=== PATIENT | female | born 1990 | race Caucasian/White ===

== ENCOUNTER 2017-09-01 05:55 | Day surgery (SDC) | payer MEDICAID ==
[~2017-09-01 05:55] MED LIST: Buffered Lidocaine 0.9% SYRIN* 5 ML/SYR SYRINGE INTRADERM ONE
[2017-09-01 06:55] LABS: Hematocrit 36 % (35-47); Hemoglobin 12.4 g/dl (12.0-16.0); Mean Corpuscular HGB Conc 35 g/dl (31-36); Mean Corpuscular Hemoglobin 31 pg (27-31); Mean Corpuscular Volume 89 fL (80-97); Platelet Count 197 10^3/ul (150-450); Red Blood Count 3.99 10^6/ul (4.0-5.4); Red Cell Distribution Width 13 % (10.5-15); White Blood Count 4.7 10^3/ul (3.5-10.8)
[2017-09-01 06:58] LABS: ABS Basophils 0 10^3/ul (0-0.2); ABS Eosinophils 0.1 10^3/ul (0-0.6); ABS Lymphocytes 1.1 10^3/ul (1.0-4.8); ABS Monocytes 0.6 10^3/ul (0-0.8); ABS Neutrophils 2.9 10^3/ul (1.5-7.7); ABS Nucleated RBC 0 10^3/ul; Lymphocyte % 22.4 % (25-47); Nucleated Red Blood Cells % 0.1
[2017-09-01] MEDS ORDERED: fentaNYL* 50 MCG/ML 2 ML VIAL (100 MCG VIAL) ONE ×2 (07:11→09:25)
[2017-09-01] MEDS ORDERED: Midazolam* 1 MG/ML 2 ML VIAL (2 MG) ONE (07:11)
[2017-09-01] MEDS ORDERED: Bupivacaine 0.25% SDV* 30 ML ONE (07:30)
[2017-09-01] MEDS ORDERED: Dexamethasone IV* 4 MG/ML 1 ML (4 MG) ONE (08:10)
[2017-09-01] MEDS ORDERED: Mivacurium Chloride* 20 MG/10 ML VIAL IV ONE (08:10)
[2017-09-01] MEDS ORDERED: Propofol* 10 MG/ML 20 ML BTL IV PUSH ONE (08:10)
[2017-09-01] MEDS ORDERED: Ketorolac INJ* 30 MG/ML 1 ML VIAL ONE (08:10)
[2017-09-01] MEDS ORDERED: Famotidine IV* 10 MG/ML 2 ML (20 mg) ONE (08:10)
[2017-09-01] MEDS ORDERED: ceFOXitin 2 GM IVPREMIX* 2 GM/50 ML BAG IVPB ONE (08:30)
[2017-09-01] MEDS ORDERED: DiMENhydriNATE IV* 50 MG/ML VIAL ONE (09:22)
[2017-09-01] MEDS ORDERED: DiMENhydriNATE IV* 50 MG/ML VIAL IV PUSH PRN (09:24)
[2017-09-01] MEDS ORDERED: PROCHLORPERAZINE INJ 5 MG/ML 2 ML VIAL IV PRN (09:24)
[2017-09-01] MEDS ORDERED: fentaNYL* 50 MCG/ML 2 ML VIAL (100 MCG VIAL) IV PRN (09:24)
[2017-09-01] MEDS ORDERED: Acetaminophen TAB* 325 MG PO PRN (09:24)
[2017-09-01] MEDS ORDERED: Naloxone* 0.4 MG/ML 1 ML VIAL IV PRN (09:24)
[2017-09-01] MEDS ORDERED: Ondansetron ODT TAB* 4 MG PO PRN (09:24)
[2017-09-01] MEDS ORDERED: Ondansetron INJ* 2 MG/ML VIAL IV PRN (09:24)
[2017-09-01] MEDS ORDERED: Acetaminophen TAB* 325 MG ONE (09:39)
[2017-09-01 10:03] VITALS: BP 158/97
--- NOTE | 2017-09-02 09:13 | OP ---
DATE OF OPERATION: 09/01/17 [facility] DATE OF : 89 SURGEON: Kate Simeon MD ANESTHESIOLOGIST: Nakita Cain MD ANESTHESIA: General with local. PRE-OP DIAGNOSES: Desires permanent sterility and menorrhagia. POST-OP DIAGNOSES: Desires permanent sterility and menorrhagia. OPERATIVE PROCEDURE: Mirena IUD removal and Mirena IUD reinsert, diagnostic laparoscopy, laparoscopic bilateral tubal ligation. ESTIMATED BLOOD LOSS: Minimal. URINE OUTPUT: 100 cc of clear yellow urine. FLUIDS: 900 cc of crystalloid. FINDINGS: Revealed a retroverted uterus with normal fimbriae seen, normal- appearing ovaries, post tubal ligation with a 2-cm portion of fulgurated bilateral fallopian tubes, normal-appearing bowel, normal-appearing liver edge, normal- appearing gallbladder, post IUD without evidence of perforation, laparoscopic. COMPLICATIONS: None apparent. DISPOSITION: Stable to recovery room. DESCRIPTION OF PROCEDURE: The patient was placed in dorsal lithotomy position. After undergoing general anesthesia, the legs were placed in [place] Gabriel stirrups. The abdomen and vagina were prepped and draped in a sterile standard fashion. The patient was identified with the moss protocol for correct procedure, position, and patient. The self-cath was inserted for drainage of clear yellow urine, 100 cc. Self-cath was removed. Sterile small speculum was inserted. Cervix was visualized. A Mirena IUD string was identified and the Mirena IUD was removed in a standard fashion using a Diann clamp. The Mirena IUD was noted to be intact. The cervix was grasped on the anterior lip with a single-tooth tenaculum. The uterus was sounded with a uterine sound to 7 cm and then a Hulka clamp was placed. Single-tooth tenaculum was removed. Speculum was removed from the vagina. At that point, attention was then focused on the abdomen. The umbilical area was infused with 6 cc of 0.25% Marcaine. Using an 11 scalpel, an incision was made. This was carried down through the fascia and the peritoneum. The fascia and peritoneum were then tagged on either side using 0 Vicryl. A Harjit 10-mm trocar and trocar sheath were inserted. Balloon was insufflated and pneumoperitoneum was created. Excellent placement was noted of the trocar. Laparoscope was inserted. Liver edge was noted to have a normal appearance as well as bowel and gallbladder. The appendix was not identified. 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 The ovaries were noted to have a normal appearance. The fimbriae were identified bilaterally and the fallopian tube was fulgurated using a Kleppinger for approximately 2 cm length of both tubes. This was done without complications. The Kleppinger was then removed and attention was then focused on replacement of the Mirena IUD. The sterile speculum was reinserted. The Hulka clamp was removed. The single-tooth tenaculum was placed on the anterior lip again and the Mirena IUD was placed in a standard technique. Strings were trimmed to 2 cm above the cervical os. The single-tooth tenaculum was removed. Sterile speculum was removed, change of gloves, and then the attention was then focused on closure of the umbilical fascia. The pneumoperitoneum was released after removal of the scope. The blunt trocar was also removed and the fascia was reapproximated using a 0 Vicryl in an interrupted fashion and the 2 stay sutures were ligated together for complete closure of the fascia. The skin itself was reapproximated using 4-0 Monocryl in a subcuticular fashion. Mastisol and Steri 's were applied. The patient tolerated the procedure well, was taken to recovery room in stable condition. All sponge, needle, instrument, and blade counts were correct. [id number]/[facility] #: [id number] [facility] HOSPITALGabi
== END 2017-09-01 10:03 | disposition home or self-care (01) ==
LOC: OR 05:55
PROVIDERS: ATTEND Obstetrics & Gynecology
DX: Z30.2 Encounter for sterilization (principal); N92.0 Excessive and frequent menstruation with regular cycle; Q23.1 Congenital insufficiency of aortic valve; F41.9 Anxiety disorder, unspecified
CPT/HCPCS: 36415; 81025; 85025; 86850; 86900; 86901; A9270-GY; J0694; J1100; J1240; J1885; J2250; J2704; J3010; J7300

== ENCOUNTER 2017-09-02 07:28 | Emergency (ER) | payer MEDICAID ==
[2017-09-02] MEDS ORDERED: Ondansetron ODT TAB* 4 MG PO ONE (09:29)
[2017-09-02 10:31] VITALS: BP 141/98
--- NOTE | 2017-09-02 22:27 | ED ---
Genia Subramanian Emily, scribed for Leela Salomon MD on 09/02/17 at 0849 . ED Suture/Wound Check - HPI Summary HPI Summary: This patient is a 27 year old F presenting to [facility] accompanied by father and her caregiver, Juaquin, with a chief complaint of bleeding from her umbilical incision that began yesterday afternoon after laprascopic surgery and has continued until now. The patient rates the pain 6/10 in severity. Symptoms aggravated by nothing. Symptoms alleviated by nothing. Patient reports nausea. Pt reports that she is status post tubal ligation and IUD removal that occurred yesterday at [address] Simeon advised that pt was coming to the ED for evaluation. Also advised that pt has some intellectual disability and was noted with her finger in her umbilicus, and pt may be incapable of not touching the wound and pt may need sutures to control the bleeding. Father corroborates this history. Pt has hx of Crohn's disease and psoriasis. - History Of Current Complaint Chief Complaint: EDAbdPain Stated Complaint: BLEEDING FROM SURGIGAL STITCHES Time Seen by Provider: 09/02/17 07:36 Hx Obtained From: Patient, Family/Community Representative - Father, and caregiver, Juaquin, Other: - Dr. Simeon Onset/Duration: Sudden Onset, Lasting Hours, Still Present Severity: Moderate Pain Intensity: 6 Pain Scale Used: 0-10 Numeric Procedure Type: Tubal Ligation Surgery Date: 09/01/17 - Allergies/Home Medications Allergies/Adverse Reactions: Allergies Allergy/AdvReac Type Severity Reaction Status Date / Time gluten Allergy GI Verified 09/01/17 06:20 INTOLERANCE Penicillins Allergy Rash Verified 09/01/17 06:20 PMH/Surg Hx/FS Hx/Imm Hx Previously Healthy: No Endocrine/Hematology History: Reports: Other Endocrine/Hematological Disorders - psoriasis Denies: Hx Diabetes Cardiovascular History: Denies: Hx Hypertension, Hx Pacemaker/ICD Respiratory History: Denies: Hx Asthma GI History: Reports: Hx Crohn's Disease Sensory History: Reports: Hx Contacts or Glasses - READING GLASSES Denies: Hx Hearing Aid Opthamlomology History: Reports: Hx Contacts or Glasses - READING GLASSES Neurological History: Reports: Hx Seizures - AGES8-11- DAD STATES NONE SINCE Psychiatric History: Reports: Hx Anxiety - ON MEDICATION FOR, Hx Depression - ON MEDICATION FOR Denies: Hx Panic Disorder - Surgical History Surgery Procedure, Year, and Place: COLONOSCOPY. tubal ligation 09/01/17 Hx Anesthesia Reactions: No - Immunization History Date of Tetanus Vaccine: unknown Infectious Disease History: No Infectious Disease History: Denies: Traveled Outside the [place] in Last 30 Days - Family History Known Family History: Positive: Hypertension, Other - Negative Crohn's - Social History Occupation: Disabled Lives: With Family Alcohol Use: None Hx Substance Use: No Substance Use Type: Reports: None Hx Tobacco Use: No Smoking Status (MU): Never Smoked Tobacco Review of Systems Positive: Other - bleeding from umbilical surgical site Eyes: Negative Cardiovascular: Negative Respiratory: Negative Positive: Nausea Genitourinary: Negative Musculoskeletal: Negative Positive: Other - Positive bleeding from abdominal incision Neurological: Negative Psychological: Normal All Other Systems Reviewed And Are Negative: Yes Physical Exam - Summary Physical Exam Summary: Appearance: Well-appearing, moderate pain distress, well-nourished Skin: Warm, color reflects adequate perfusion, bright red blood from her umbilicus at site of surgery yesterday, ecchymosis inferior to umbilicus 3 cm, no hematoma, no exudate Head: Normal Head/Face inspection, atraumatic Eyes: Conjunctiva clear ENT: Normal inspection Neck: Supple, no nodes, no JVD Respiratory: Lungs clear, normal breath sounds, no respiratory distress Cardio: RRR, No murmur, pulses normal, brisk capillary refill Abdomen: Soft, minimal to moderate tenderness at umbilicus, no abd distension, no masses, no hematoma Bowel sounds: Present Musculoskeletal: Strength Intact/ROM intact, no calf tenderness, no edema. Psychological: Normal Neuro: Alert, muscle tone normal, no focal deficit Triage Information Reviewed: Yes Vital Signs On Initial Exam: Initial Vitals Temp Pulse Resp BP Pulse Ox 97.2 F 86 16 110/91 99 09/02/17 07:35 09/02/17 07:35 09/02/17 07:35 09/02/17 07:35 09/02/17 07:35 Vital Signs Reviewed: Yes Procedures - Procedure Summary Procedure Summary: Complication of needle breaking off in skin without sutures being placed. Care referred to Dr. Bess, who was able to retrieve needle and able to suture the wound. Bleeding controlled. Father and caregiver and pt aware that needle had broken off. - Laceration/Wound Repair 1 Location: abdomen - umbilicus Description: Linear Anesthesia: Local, 1.0%, Lido Length, Depth and Shape: 2 cm x 1 mm x 1 mm Betadine Prep?: No - Chlorhexidine Laceration/Wound Explored: clean Number of Sutures: 0 - no sutures placed due to needle breaking off in skin. Layer Closure?: No - Complication of cutting needle from 3-0 vicryl breaking off in skin. Diagnostics - Vital Signs Vital Signs Temp Pulse Resp BP Pulse Ox 09/02/17 08:21 87 144/98 98 09/02/17 08:00 86 98 09/02/17 07:52 84 97 09/02/17 07:51 88 156/99 97 09/02/17 07:35 97.2 F 86 16 110/91 99 - Laboratory Lab Statement: Any lab studies that have been ordered have been reviewed, and results considered in the medical decision making process. Re-Evaluation - Re-Evaluation First Eval Re-Evaluation Time: 09:15 Change: Unchanged Comment: Pt and father and Juaquin advised that Dr. Bess will see pt to suture and remove broken needle from skin. Second Eval Re-Evaluation Time: 09:40 Change: Unchanged Comment: Dr. Bess present and will suture pt and remove needle. Second time out procedure performed. Father remains with pt throughout. Third Eval Re-Evaluation Time: 10:15 Change: Improved Comment: Bleeding is controlled after suturing. Dr. Bess was able to remove the needle without a problem. Dr. Simeon is also present. Pt's dressing is dry and intact with tegoderm. Ice pack is applied. Course/Dx - Course Course Of Treatment: This patient is a 27 year old F [facility] accompanied by father with a chief complaint of bleeding from abdominal incision that began yesterday afternoon, post op from tubal ligation and IUD removal yesterday at 0900am. Complication occured with needle breaking off in skin, while attempting to suture, without sutures placed. Care referred to Dr. Soliman, who was able to retrieve needle and able to suture the wound. Bleeding controlled. In the ED course, the patient recieved Zofran for nausea which preceded the needle breaking off complication. Pt, father and caregiver Juaquin were all informed of the needle breaking off. - Differential Diagnoses Differential Diagnoses: Dehiscence, Healing Wound, Hematoma - Clinical Impression Provider Diagnoses: Post-op bleeding - Physician Notifications Discussed Care Of Patient With: Kate Simeon Time Discussed With Above Provider: 09:15 - Dr. Burger, diamond finishing supervisor, will see pt. Discussed with Dr. Burger also. Discharge - Sign-Out/Discharge Documenting (check all that apply): Discharge/Admit/Transfer - home - Discharge Plan Condition: Stable Disposition: HOME Patient Education Materials: Care For Your Stitches (ED), Tubal Ligation (DC) Referrals: Kate Simeon MD [Primary Care Provider] - 6 Days (as scheduled ) Additional Instructions: Dr. Bess placed absorbable sutures in your umbilicus. Please keep your scheduled appointment with Dr. Simeon. Return to the ER if you have new or worsening symptoms. - Billing Disposition and Condition Condition: STABLE Disposition: Home The documentation as recorded by the Genia strong Emily accurately reflects the service I personally performed and the decisions made by , Leela Salomon MD.
--- NOTE | 2017-09-03 01:00 | PN ---
Progress Note - Progress Note Date of Service: 09/02/17 Note: Pt is 1 day s/p Lap BTL and arrived at the ED with bleeding from the umbilical incision. I was called to assist with removal of suture needle which fell off the suture that was being placed by Dr. Byers. A time out was performed and the incision area was clensed with betadyne. With close inspection the needle was visualized and removed with forceps. A 4-0 vicryl suture was then used to reinforce the incision with 2 interrupted sutures. The pt tolerated the procedure well. Good hemostasis was noted afterwards. The area was cleaned and covered with gauze and a tegaderm. Pt, dad and caregiver where instructed to leave the dressing on until the following am and they can replace it once prn.
== END 2017-09-02 10:30 | disposition home or self-care (01) ==
LOC: ED 07:28
DX: L76.22 Postprocedural hemorrhage of skin and subcutaneous tissue following other procedure (principal); L76.81 Other intraoperative complications of skin and subcutaneous tissue; T81.508A Unspecified complication of foreign body accidentally left in body following other procedure, initial encounter; Y92.238 Other place in hospital as the place of occurrence of the external cause; F41.8 Other specified anxiety disorders
CPT/HCPCS: 12001; 99283; A9270-GY

== ENCOUNTER 2018-05-29 18:41 | Emergency (ER) | payer MEDICARE, MEDICAID ==
[2018-05-29] MEDS ORDERED: NS 0.9% 1000 ML** 1,000 ML IV ONE (18:42)
--- NOTE | 2018-05-29 18:57 | ED ---
Neurological HPI - HPI Summary HPI Summary: JERED DUKE called overhead at 18:34, ETA 5 minutes, called by Dr. Rios. This pt is a 28 y/o female presenting to [facility] via EMS from [facility] with right sided weakness and unequal pupils s/p fall. Father reports he dropped the pt off where she lives at about 15:30 today. Pt called her dad at about 17:40 and per father pt sounded normal. At around 17:40 pt fell from her bed and hit her head first on, per staff. Father reports pt has developmental delay and is cognitively like a 14 y/o. Per father pt lives near him with caregivers. Father states pt's speech and social skills are good. 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 PMHx includes seizures (not on medications for this), anxiety (on meds for this) , Crohn's disease (on Methotrexate and shots of Stelara), psoriasis, anemia, heavy menstrual cycles, hematuria, bicuspid aortic valve. Per father, pt does not take aspirin or any other blood thinners. - History of Current Complaint Stated Complaint: RULE OUT JERED RASMUSSEN PER EMS Time Seen by Provider: 05/29/18 18:42 Hx Obtained From: Family/Prawn Trawler Hand - Father, EMS Onset/Duration: Sudden Onset, Started hours ago - at 17:40, Still Present Timing: Sudden Onset Current Severity: Moderate Neurological Deficit Location: Facial - unequal pupils, RUE, RLE Character: Weak - right sided, Other: - unequal pupils Aggravating: Nothing Alleviating: Nothing Associated Signs and Symptoms: Positive: Weakness, Trauma: Recent Related Hx: Trauma - fell from bed on to head first - Allergy/Home Medications Allergies/Adverse Reactions: Allergies Allergy/AdvReac Type Severity Reaction Status Date / Time gluten Allergy GI Verified 09/01/17 06:20 INTOLERANCE Penicillins Allergy Rash Verified 09/01/17 06:20 Home Medications: Home Medications Turmeric [Curcumin] 1 gm PO DAILY 05/29/18 [History Confirmed 05/29/18] PMH/Surg Hx/FS Hx/Imm Hx Endocrine/Hematology History: Reports: Other Endocrine/Hematological Disorders - psoriasis Denies: Hx Diabetes Cardiovascular History: Denies: Hx Hypertension, Hx Pacemaker/ICD Respiratory History: Reports: Other Respiratory Problems/Disorders - NARROW NASAL PASSAGES/NASAL STENOSIS Denies: Hx Asthma GI History: Reports: Hx Crohn's Disease Sensory History: Reports: Hx Contacts or Glasses - READING GLASSES Denies: Hx Hearing Aid Opthamlomology History: Reports: Hx Contacts or Glasses - READING GLASSES Neurological History: Reports: Hx Seizures - AGES8-11- DAD STATES NONE SINCE Psychiatric History: Reports: Hx Anxiety - ON MEDICATION FOR, Hx Depression - ON MEDICATION FOR Denies: Hx Panic Disorder - Surgical History Surgery Procedure, Year, and Place: COLONOSCOPY. tubal ligation 09/01/17 Hx Anesthesia Reactions: No - Immunization History Date of Tetanus Vaccine: unknown - Family History Known Family History: Positive: Hypertension, Other - Negative Crohn's - Social History Alcohol Use: None Hx Substance Use: No Substance Use Type: Reports: None Hx Tobacco Use: No Smoking Status (MU): Never Smoked Tobacco Review of Systems Negative: Fever, Chills Eyes: Other - POS: unequal pupils Cardiovascular: Negative Respiratory: Negative Positive: Weakness - right sided All Other Systems Reviewed And Are Negative: Yes Physical Exam - Summary Physical Exam Summary: VITAL SIGNS: Reviewed. GENERAL: Patient is a young and nourished female who has mental retardation with good social skills. Patient is not in any acute respiratory distress. HEAD AND FACE: Normocephalic EYES: PERRLA, EOMI x 2. EARS: Hearing grossly intact. MOUTH: Oropharynx within normal limits. NECK: Supple, trachea is midline, no adenopathy, no JVD, no carotid bruit. CHEST: Symmetric, no tenderness at palpation LUNGS: Clear to auscultation bilaterally. No wheezing or crackles. Ejection systolic murmur 2/6. CVS: Regular rate and rhythm, S1 and S2 present, no murmurs or gallops appreciated. ABDOMEN: Soft, non-tender. Bowel sounds are normal. No abdominal abnormal pulsations. EXTREMITIES: Full ROM in all major joints, no edema, no cyanosis or clubbing. NEURO: Alert and oriented x3. Weakness in right lower extremity. Hyperflexion in left lower extremity. SKIN: Dry and warm Triage Information Reviewed: Yes Vital Signs Reviewed: Yes Diagnostics - Laboratory Result Diagrams: 05/29/18 18:59 05/29/18 18:59 Lab Statement: Any lab studies that have been ordered have been reviewed, and results considered in the medical decision making process. - Radiology Chest XR Radiology Interpretation Completed By: ED Physician Summary of Radiographic Findings: No acute abnormality. Pending official radiology report. - CT Brain CT CT Interpretation Completed By: Radiologist Summary of CT Findings: IMPRESSION: Acute intraparenchymal hemorrhage within the left basal ganglia measuring 4.5 x 4 x 2.3 (approximately 20 mL), with associated 0.2 cm left to right midline shift. This report contains findings that may be critical to patient care. The findings were verbally communicated via telephone conference with Abdoul Cohen at 7:01 PM EST on 05/29/2018. The findings were acknowledged and understood. - EKG 19:04 Cardiac Rate: NL - at 84 bpm EKG Rhythm: Sinus Rhythm Summary of EKG Findings: No ST elevations. T wave inversions in leads V1-V6. ST depression in leads V4-V6. Re-Evaluation - Re-Evaluation First Eval Re-Evaluation Time: 21:39 Comment: Discussed transfer plan with father. He understands and agrees. Course/Dx - Course Course Of Treatment: Jered jossie called at 18:34, ETA 5 minutes. Pt straight to CT upon arrival at 18:42. poultry field service technician reports CT shows bleed at 18:48. Pt returned from CT at 18:49. Radiologist reports abnormal brain CT at 19:01. At 19:[address] Valverde, neurosurgeon, and he doesn't recommend mannitol, anti seizure medications, or Decadron. Dr. Valverde recommends admission to hospitalist. Assessment/Plan: This patient is a 28-year-old female who presents to the emergency department via ambulance and with her father with a chief complaint of falling and having altered mental status. The patient has past medical history significant for developmental delay, Crohns disease, seizure disorder without any medications, hematuria, psoriasis, and deficiency anemia. As per patients father he reports that he was told that in the [facility] the patient had a falling out of bed hitting her head. Blood work without any significant abnormality except for sodium of 131, chloride is 100, creatinine is 0.4, glucose 126. Head CT impression: Acute intraparenchymal hemorrhage within the left basal ganglia measuring 4.5 x 4 x 2.3 cm (approximately 20 mL), with associated 0.2 cm left to right midline shift. At this point I discussed my physical exam and findings with Dr. Valverde from neurosurgery and he recommends admission to the hospitalist for observation. He reports that there is no surgical intervention at this point. The patients blood pressure significantly elevated therefore I believe that the patient may have had this type of bleed secondary to hypertensive urgency. Therefore I placed the patient in Nitroprusside with titration. I discussed my physical exam and findings with Dr. Rosales from the hospitalist services who accepted the patient for admission. Dr. Lutz took over the care for this patient from Dr. Rosales and before the patient was transferred to the floor she requested me to speak with neurosurgery and [facility] as a second opinion. I discussed the case with Dr. Rosado neurosurgeon from [facility] and he accepted the patient for transfer to try minimal invasive procedures for retrieving the blood clot. I discussed the plan with the patients father and he agrees with the transfer. Patient continues to be hemodynamically stable, maintaining her airway, so at this time there is no need for intubation. Patient is hemodynamically stable. - Diagnoses Provider Diagnoses: Hemorrhagic cerebrovascular accident (CVA), Hypertensive emergency During the Visit The Following Alert/Code Occurred: Code [facility] - overhead at 18: 34, ETA 5 minutes - Physician Notifications Discussed Care Of Patient With: Alvaro Zapata - radiologist Time Discussed With Above Provider: 19:01 Instructed by Provider To: Other - Dr. Zapata, radiologist, reports hemorrhage seen in brain CT. [19:02] Discussed the case with Dr. Valverde, neurosurgeon, who doesn't recommend mannitol, anti seizure medications, or Decadron, and admission to hospitalist. [19:05] Dr. Rosales, hospitalist, accepted the pt for admission. [21:33] Dr. Lemons, neurosurgeon from [facility], accepts the pt for transfer. - Critical Care Time Critical Care Time: 75-104 min Discharge - Sign-Out/Discharge Documenting (check all that apply): Patient Departure - TRANSFER TO [facility] Patient Received Moderate/Deep Sedation with Procedure: No - Discharge Plan Condition: Stable Disposition: TRANS HIGHER LVL OF CARE FAC Referrals: Kate Simeon MD [Medical Doctor] - - Billing Disposition and Condition Condition: STABLE Disposition: Trans Higher Lvl of Care Fac - Attestation Statements Document Initiated by Scribe: Yes Documenting Scribe: Noreen Granger Provider For Whom Scribe is Documenting (Include Credential): Abdoul Cohen MD Scribe Attestation: I, Noreen Granger, scribed for Abdoul Cohen MD on 05/29/18 at 2202. Scribe Documentation Reviewed: Yes Provider Attestation: The documentation as recorded by the scribeNoreen accurately reflects the service I personally performed and the decisions made by me, Abdoul Cohen MD Status of Scribe Document: Viewed
[2018-05-29 19:11] LABS: ABS Basophils 0 10^3/ul (0-0.2); ABS Eosinophils 0.1 10^3/ul (0-0.6); ABS Lymphocytes 1.4 10^3/ul (1.0-4.8); ABS Monocytes 0.8 10^3/ul (0-0.8); ABS Neutrophils 6.5 10^3/ul (1.5-7.7); ABS Nucleated RBC 0 10^3/ul; Eosinophil % 1.2 %; Hematocrit 39 % (35-47); Hemoglobin 12.9 g/dl (12.0-16.0); Lymphocyte % 15.9 %; Mean Corpuscular HGB Conc 33 g/dl (31-36); Mean Corpuscular Hemoglobin 30 pg (27-31); Mean Corpuscular Volume 90 fL (80-97); Mean Platelet Volume 8.9 fL (7.4-10.4); Nucleated Red Blood Cells % 0; Platelet Count 231 10^3/ul (150-450); Red Cell Distribution Width 13 % (10.5-15); White Blood Count 8.8 10^3/ul (3.5-10.8)
[2018-05-29 19:20] LABS: Activated Partial Thrombo Time 30.2 seconds (26.0-36.3); INR 0.8 (0.77-1.02)
[2018-05-29 19:29] LABS: Albumin/Globulin Ratio 1.7 (1-3); BUN/Creatinine Ratio 27.5 (8-20); EGFR African American 231.7 (>60); EGFR Non-African American 191.5 (>60); Globulin 2.4 g/dL (2-4); HDL Cholesterol 53.1 mg/dL; Potassium 3.6 mmol/L (3.5-5.0); Total Bilirubin 0.6 mg/dL (0.2-1.0); Total Protein 6.4 g/dL (6.4-8.9)
[2018-05-29] MEDS: NitroPRUSSide* 50 MG in D5W 250 ML BAG* 248 ML IVPB SCH ×6 (19:39→21:57)
[2018-05-29] MEDS ORDERED: Ondansetron INJ* 2 MG/ML VIAL ONE (20:07)
[2018-05-29] MEDS ORDERED: Ondansetron INJ* 2 MG/ML VIAL IV ONE (20:15)
[2018-05-29 23:01] VITALS: BP 140/75
--- NOTE | 2018-05-29 23:30 | CONS ---
CC: Mikhail Bazzi MD * CONSULTATION REPORT: DATE OF CONSULT: 05/29/18. TIME OF EVALUATION: 1999. PRIMARY CARE PHYSICIAN: Mikhail Bazzi MD CHIEF COMPLAINT: Syncope and intraparenchymal bleed. HISTORY OF PRESENT ILLNESS: This is a 28-year-old female with past medical history of intellectual developmental disability and Crohn's disease, who presented to the emergency room with a syncopal episode and fall. The history is not entirely clear. The father who is at the bedside provides most of the history. The patient lives in the [facility] with a caregiver. She is relatively independent. She is independent of her ADLs and she volunteers and she was at her boyfriend's house [place] where they often play video games. The caregiver was on his way to pick her up. When he arrived, the patient was found collapsed on the floor and not moving her right side and EMS was called. The patient is able to tell me that she was having sex and she was not feeling well with some abdominal discomfort earlier in the day and then she states she felt lightheaded and believes she passed out. It is not clear if she hit her head and she does not remember anything after that. The boyfriend unfortunately also has a developmental disability, was not able to provide any history. On arrival to the emergency room, a osorio leon was called. The patient was found to have an intraparenchymal bleed. Dr. Valverde from Neurosurgery initially recommended supportive care and no surgical intervention. The patient on my encounter is complaining of a headache, no vision changes. She does feel nauseated with abdominal pain, which is similar to her Crohn's flare in the past. She is not sure when her last bowel movement was. She denies any diarrhea. She did have vomiting earlier after she came around to after her syncopal episode. No weight changes. No recent cold. No medication changes. The patient denies any NSAIDs or aspirin or anticoagulation. They state she does go to the doctor routinely and she has never been documented for hypertension in the past. Otherwise, review of systems is negative. As mentioned, the patient had labs and imaging. She was given Zofran and referred to the hospitalist service for further evaluation. PAST MEDICAL HISTORY: 1. Intellectual developmental disability. 2. Crohn's disease, followed by Dr. Flannery. 3. History of epilepsy, has been seizure free and off antiepileptic medications since age 12, followed by Dr. Villagomez. 4. History of aortic bicuspid valve. 5. History of psoriasis, on biologic agents. 6. History of congenital single incisor. 7. History of tubal ligation. 8. History of IUD. MEDICATIONS: 1. The patient takes Dulera. 2. Methotrexate 2 tabs weekly. 3. One low dose naltrexone, unsure the medications. 4. Amitriptyline. 5. Citalopram. 6. Melatonin. 7. Multivitamin. 8. Probiotic. 9. Vitamin D. 10. Fish oil. 11. Iron. 12. Several supplements. ALLERGIES: GLUTEN and PENICILLIN. FAMILY HISTORY: Her father and her 2 siblings, age 29 and 32 all have hypertension, on antihypertensive medications. SOCIAL HISTORY: The patient lives in [facility] with a live-in caregiver. Her father and stepmother live in [facility] in a separate building. She volunteers at [employer]. She is independent of her ADLs. She does have some help with her medications. No history of smoking, alcohol, or illicit drug use. Her healthcare proxy is her father. Code status is full code. REVIEW OF SYSTEMS: A 14-point review of systems as mentioned in the HPI, otherwise negative. PHYSICAL EXAM: Vitals: Temp 98.7, pulse rate 97, respiratory rate 20, oxygen saturation 99% on room air, blood pressure 131/93. General: The patient intermittently uncomfortable, complaining of abdominal discomfort. Her father and stepmother are at the bedside. Head is normocephalic. Pupils are equal and reactive. Oropharynx: Mucous membranes dry. Neck: Supple. No lymphadenopathy. Cardiac: Regular rate and rhythm. Soft systolic murmur heard throughout. Respiratory: Clear to auscultation. No wheezes, rhonchi, or rales. Abdomen: Soft, positive bowel sounds, diffuse tenderness. No rebound or guarding. Extremities: No clubbing, cyanosis, or edema. Neurologic: The patient is alert and oriented x3. She has a left-sided facial droop. She has right upper and lower extremity spasticity and paralysis. Her left upper and lower extremities are 5/5. DIAGNOSTIC STUDIES/LAB DATA: White count 8.8, hemoglobin 12.9, hematocrit 39, platelets 231,000. INR 0.8. Sodium 131, potassium 3.6, chloride 100, bicarb 24 , BUN 11, creatinine 0.4, glucose 126. Lactic acid 1.2. Troponin 0. LDL was 80. Radiographic data: Head CT shows acute intraparenchymal hemorrhage within the left basal ganglia measuring 4.5 x 4 x 2.3 with associated 0.2 cm left to right midline shift. ASSESSMENT: This is a 28-year-old female with a past medical history of intellectual developmental disability and Crohn's disease, who presented to the emergency room after having a syncopal episode with right-sided weakness, found to have an intraparenchymal bleed. Acute intraparenchymal hemorrhage. Assessment: The patient with right-sided paralysis, spasticity and left facial droop. Initially, I spoke with Dr. Valverde. We discussed the possibility of being transferred to [place] for the Kincaid procedure. Dr. Valverde agreed with contacting the embassy if she would be a candidate for this. Dr. Cohen called [place] and they said they would accept transfer to see if she was a candidate for the Kincaid procedure. In the emergency room, the patient has been maintained on the nitroprusside drip which we will continue to maintain her systolic blood pressure less than 150. I did also order a CAT scan for a concern of her persistent abdominal pain that was read as constipation. The patient is going to be transferred to [place] for evaluation if she is a candidate for the Kincaid procedure, which Dr. Valverde has agreed to and the family is aware and agreeable to plan as well. PATIENT TIME: Greater than 60 minutes were spent doing the consultation, more than half the time spent in direct patient contact. [id number]/[facility] #: [id number] [facility]ENTER[facility]
== END 2018-05-29 23:19 | disposition short-term general hospital (02) ==
LOC: ED 18:41
DX: I62.9 Nontraumatic intracranial hemorrhage, unspecified (principal); Z88.0 Allergy status to penicillin; R53.1 Weakness; I16.1 Hypertensive emergency; Z98.51 Tubal ligation status
CPT/HCPCS: 36415; 70450; 71045; 74176; 80053; 80061; 83605; 84484; 85025; 85610; 85730; 86850; 86900; 86901; 93005; 96360; 99285; J2405

== ENCOUNTER 2019-05-13 09:21 | Emergency (ER) | payer MEDICARE, MEDICAID ==
--- OUTSIDE RECORDS SUMMARY | 2019-05-13 10:10 | XMS REPORT | Continuity of Care Document ---
:1990 External Reference #:[id number] Author Name Dale Madrid M.D. Address [address] [place] [address] Care Team Providers Name Role Phone Leela Hendrix NP Care Team Information Professor Of Geology Unavailable Kate Simeon - Obstetrics & Care Team Information Professor Of Geology [phone] Gynecology Trung Smith MD - Care Team Information Professor Of Geology [phone] Gastroenterology Chalo Flannery MD - Care Team Information Professor Of Geology [phone] Gastroenterology Mirta Key Care Team Information Professor Of Geology [phone] Problems Active Problems Provider Date Aortic valve disorder Uma Wiggins M.D. Onset: 04/03/2012 Excessive and frequent menstruation Uma Wiggins M.D. Onset: 2012 Psoriasis Uma Wiggins M.D. Onset: 04/03/2012 Social History Type Date Description Comments Sex Unknown Tobacco Use Start: Unknown Never Smoked Cigarettes Tobacco Use Start: Unknown Patient has never smoked Smoking Status Reviewed: 09/06/18 Patient has never smoked Allergies, Adverse Reactions, Alerts Active Allergies Reaction Severity Comments Date Penicillin rash 04/03/2012 Wheat Gluten Extract 12/29/2016 Medications Active Medications SIG Qnty Indications Ordering Date Provider Ibuprofen take one tablet 30tabs Dale Madrid M.D. 05/11/2019 600mg Tablets by mouth 3-4 times daily (do not take any on the same day as methotrexate) Hydrocodone-Acetaminop take 1/2 - 2 30tabs Dale Madrid M.D. 05/11/2019 hen tablet by mouth 5-325mg Tablets every 4 hours as needed for pain (causes constipation) (do not use if you are taking naltrexone) Debrox 5-10 drops in QS Perri Danie, 09/06/2018 6.5% Solution both ears twice [employer] daily x 4 days Clotrimazole apply to rash 30gm B37.89 Cassidy Juarez, 04/11/2017 1% Cream twice a day TELEPHONE LINES REPAIRER-C Naltrexone HCL 1 by mouth every 30tabs Deann Guy, 12/18/2015 4.5mg day M.D., R.D. Tablets Vitamin B-12 Cassidy Juarez, 11/23/2015 Natural TELEPHONE LINES REPAIRER-C 500mcg Tablets Fish Oil Cassidy Juarez, 11/23/2015 1000mg Capsules TELEPHONE LINES REPAIRER-C Mirena Cassidy Juarez, 09/13/2013 20mcg/24HR IUD TELEPHONE LINES REPAIRER-C Citalopram take 1 tablet by 30tabs F41.9 Perri Helton, 07/22/2013 Hydrobromide mouth every day [employer]GER 20mg Tablets Stelara Unknown 45mg/0.5ML Soln Prefill Syringe Trazodone HCL take 1 tablet by 30tabs Naveen R. 50mg mouth at 900 Storm TELEPHONE LINES REPAIRER-C Tablets p.m. -- maximum daily dose of 1 per day Sodium Chloride Take 2 Tablets Unknown 1gm By Mouth AT 10Am Tablets And Then Take 2 Tablets By Mouth AT 6PM --- Maximum Daily Dose Of 4 Per Day Mirtazapine take 1 tablet by 30tabs Naveen R. 15mg Tablets mouth at bedtime Storm, TELEPHONE LINES REPAIRER-C -- maximum daily dose of 1 per day Ondansetron HCL Take 1 Tablet By Unknown 4mg Mouth Every 8 Tablets Hours as Needed For Nausea -- Maximum Daily Dose Of 3 Per Day Lorazepam Unknown 0.5mg Tablets Carvedilol take 1 tablet by 60tabs Phyllis P. 12.5mg Tablets mouth two times Omar, MBrockDBrock daily -- maximum daily dose of 2 per day Baclofen take 2 tablets 240tabs Perri Helton, 10mg Tablets by mouth at 800 AUT[employer]IVE GENERAL MANAGER a.m., 100 p.m. ,500 p.m. and 900 p.m. -- maximum daily dose of 8 per day Folic Acid Unknown 1mg Tablets Methotrexate Take 3 tabs po 12tabs Perri Danie, 2.5mg weekly [employer] GENERAL MANAGER Tablets Amitriptyline HCL Unknown 10mg Tablets History Medications TB,Intradermal (PPD, Mantoux) [facility] - Injection Immunizations CPT Code Status Date Vaccine Lot # [id number] Given 01/17/2017 Influenza Virus Vaccine, Quadrivalent, 3 Yr > [id number] Quad, Preserv Free 85911 Given 09/20/2016 Tdap (Adacel) [id number] 22449 Given 05/20/2015 Influenza Virus Vaccine, Quadrivalent, 3 Yr > Quad, Preserv Free 05974 Given 09/24/2008 Hepatitis A (Ped) 2 Dose Schedule 08634 Given 09/21/2007 Hepatitis A (Ped) 2 Dose Schedule 26157 Given 06/06/2007 HPV Vaccine, Gardasil 77906 Given 02/01/2007 HPV Vaccine, Gardasil 52824 Given 11/23/2006 HPV Vaccine, Gardasil 65536 Given 05/30/2006 Menactra (meningococcal conjugate vaccine) 58489 Given 05/30/2006 Tdap (Adacel) 56326 Given 09/02/2003 Hep B Vaccine, Ped/Adol Dose 3 Dose (Engerix or Recombivax) 18066 Given 06/18/2002 Hep B Vaccine, Ped/Adol Dose 3 Dose (Engerix or Recombivax) 60514 Given 05/23/2002 DTaP (Daptacel) 33962 Given 05/23/2002 Hep B Vaccine, Ped/Adol Dose 3 Dose (Engerix or Recombivax) 67306 Given 11/21/1996 MMR (Measles,Mumps,Rubella) 68117 Given 06/09/1992 Inactivated Polio Vaccine, Injectable (Ipol) 15143 Given 06/09/1992 MMR (Measles,Mumps,Rubella) 13800 Given 06/09/1992 DTaP (Daptacel) 01978 Given 06/09/1992 Hib (Hemophilus Influenza B) (Acthib) 42096 Given 1991 DTaP (Daptacel) 17597 Given 1991 Hib (Hemophilus Influenza B) (Acthib) 12114 Given 1991 Inactivated Polio Vaccine, Injectable (Ipol) 31027 Given 1991 DTaP (Daptacel) 90483 Given 1991 Hib (Hemophilus Influenza B) (Acthib) 31977 Given 1991 Inactivated Polio Vaccine, Injectable (Ipol) 23254 Given 1991 DTaP (Daptacel) 16079 Given 1991 Hib (Hemophilus Influenza B) (Acthib) Vital Signs Date Vital Result Comment 04/02/2019 3:08pm BP Systolic 120 mmHg BP Diastolic 70 mmHg Heart Rate 72 /min Body Temperature 98.1 F Respiratory Rate 16 /min 01/03/2019 11:28am BP Systolic 90 mmHg BP Diastolic 68 mmHg Heart Rate 76 /min Body Temperature 98.7 F Respiratory Rate 20 /min Results Description No Information Available Procedures Description No Information Available Medical Devices Description No Information Available Encounters Type Date Location Provider Dx Diagnosis Office Visit 04/02/2019 Main Office Diann Hughes NP H61.23 Impacted cerumen, 3:00p bilateral Office Visit 01/03/2019 Main Office Dale Madrid M.D. R42 Dizziness and 11:15a giddiness Office Visit 11/16/2018 [facility] Perri Helton, I61.8 Other nontraumatic 10:15a [employer] intracerebral hemorrhage R11.0 Nausea R51 Headache Assessments Date Code Description Provider 05/11/2019 M25.562 Pain in left knee Dale Madrid M.D. 04/02/2019 H61.23 Impacted cerumen, bilateral Diann Hughes NP 01/03/2019 R42 Dizziness and giddiness Dale Madrid M.D. 11/16/2018 I61.8 Other nontraumatic intracerebral hemorrhage Perri Helton NP 11/16/2018 R11.0 Nausea Perri Helton NP 11/16/2018 R51 Headache Perri Helton NP Plan of Treatment Future Appointment(s):06/14/2019 1:15 pm - Diann Hughes NP at Main [id number] - Dale Madrid M.D.M25.562 Pain in left kneeComments:Exam is significantly limited.Based on limited exam and history along with a very significant effusion it seems most likely that she has injured the meniscus.I do not appreciate any signs of infection.We will try treating with an anti-inflammatory , ice, and hydrocodone if needed for severe pain.If notgetting better will need to return for more thorough exam in the office. Functional Status Description No Information Available Mental Status Description No Information Available Referrals Description No Information Available
--- NOTE | 2019-05-13 10:37 | ED ---
Lower Extremity - HPI Summary HPI Summary: The patient is a 29 y/o F presenting to [facility] accompanied by family with a cc of L knee pain and swelling worsening since 05/10/2019. Her family reports that she has a history of IPH in May 2018, and she has chronic right-sided weakness and paralysis, so she has been compensating on the left with standing and pivoting. She has been going to PT, and this past week, they noticed that there was mild swelling but no pain in the L knee, so she was advised to apply ice. On 05/11/2019, she went to her PCP for the pain; however, she has continued to experience the pain with decreased ROM, and swelling has increased. The pain , which is currently rated 10/10 in severity, is worst with bending, although rest somewhat alleviates it. She has been bending the knee at PT. She has been taking Percocet for her symptoms without much relief, last taken at 0845 today. She endorses decreased appetite and constipation since 05/10/2019, likely attributed to pain medications, but she also has a history of Crohns disease. She is on a bowel regimen of Miralax and tea. She denies fevers. PMHx: IPH in May 2018, epilepsy, developmental delay, psoriasis. Nonsmoker, no EtOH, no substance use. Medications reviewed. Allergies noted. - History of Current Complaint Chief Complaint: EDExtremityLower Stated Complaint: LEFT KNEE PAIN PER PT Time Seen by Provider: 05/13/19 10:11 Hx Obtained From: Patient, Family/Shank Rander Mechanism Of Injury: Other - possible compensation on L side due to chronic R- sided weakness from IPH Onset of Pain: Days Onset/Duration: Days Severity Initially: Mild Severity Currently: Severe Pain Intensity: 10 Pain Scale Used: 0-10 Numeric Timing: Constant Location: Is Discrete @ - L knee Character Of Pain: Aching Associated Signs And Symptoms: Positive: Swelling, Other - decreased ROM secondary to pain, decreased appetite, constipation. Negative: Fever Aggravating Factor(s): Movement - bending Alleviating Factor(s): Rest - somewhat Related History: Other - chronic R-sided weakness due to IPH in May 2018 - Allergies/Home Medications Allergies/Adverse Reactions: Allergies Allergy/AdvReac Type Severity Reaction Status Date / Time gluten Allergy GI Verified 05/13/19 09:33 INTOLERANCE Penicillins Allergy Rash Verified 05/13/19 09:33 dairy Allergy Vomiting Uncoded 05/13/19 09:33 PMH/Surg Hx/FS Hx/Imm Hx Endocrine/Hematology History: Reports: Other Endocrine/Hematological Disorders - psoriasis Denies: Hx Diabetes Cardiovascular History: Denies: Hx Hypertension, Hx Pacemaker/ICD Respiratory History: Reports: Other Respiratory Problems/Disorders - NARROW NASAL PASSAGES/NASAL STENOSIS Denies: Hx Asthma GI History: Reports: Hx Crohn's Disease History: Denies: Hx Renal Disease Sensory History: Reports: Hx Contacts or Glasses - READING GLASSES Denies: Hx Hearing Aid Opthamlomology History: Reports: Hx Contacts or Glasses - READING GLASSES Neurological History: Reports: Hx Developmental Delay, Hx Seizures - AGES8-11- DAD STATES NONE SINCE Psychiatric History: Reports: Hx Anxiety - ON MEDICATION FOR, Hx Depression - ON MEDICATION FOR Denies: Hx Panic Disorder - Surgical History Surgical History: Yes Surgery Procedure, Year, and Place: COLONOSCOPY. tubal ligation 09/01/17 Hx Anesthesia Reactions: No - Immunization History Date of Tetanus Vaccine: unknown Infectious Disease History: No Infectious Disease History: Denies: Traveled Outside the [place] in Last 30 Days - Family History Known Family History: Positive: Hypertension, Other - Negative Crohn's - Social History Alcohol Use: None Hx Substance Use: No Substance Use Type: Reports: None Hx Tobacco Use: No Smoking Status (MU): Never Smoked Tobacco Review of Systems Negative: Fever Positive: Other - constipation, decreased appetite Positive: Arthralgia - left knee worst at lateral aspect, with swelling, Decreased ROM - secondary to pain, worst with bending. Negative: Other - RLE pain All Other Systems Reviewed And Are Negative: Yes Physical Exam - Summary Physical Exam Summary: Constitutional: Well-developed, Well-nourished, Alert. (-) Distressed Skin: Warm, Dry HENT: Normocephalic; Atraumatic Eyes: Conjunctiva normal Neck: Musculoskeletal ROM normal neck. (-) JVD, (-) Stridor, (-) Nuchal rigidity Cardio: Rhythm regular, rate normal, Heart sounds normal; Intact distal pulses; Radial pulses are 2+ and symmetric. (-) Murmur Pulmonary/Chest wall: Effort normal. (-) Respiratory distress, (-) Wheezes, (-) Rales Abd: Soft, (-) tenderness, (-) Distension, (-) Guarding, (-) Rebound Musculoskeletal: Diffuse swelling of the left knee, No erythema, FROM (w pain), 2+ L DP pulse. No pain to ankle/foot. Lymph: (-) Cervical adenopathy Neuro: Alert, Oriented x3, R sided weakness, R foot drop Psych: Mood and affect Normal Triage Information Reviewed: Yes Vital Signs On Initial Exam: Initial Vitals Temp Pulse Resp BP Pulse Ox 98.1 F 85 19 126/85 96 05/13/19 09:28 05/13/19 09:28 05/13/19 09:28 05/13/19 09:28 05/13/19 09:28 Vital Signs Reviewed: Yes Procedures - Procedure Summary Procedure Summary: Aspiration of L Knee: Unable to drain fluid from the knee, one attempt using Lidocaine 1%. Sterile gloves used. Area cleaned w chlorhexadine. 1 attempt medially. - Sedation Patient Received Moderate/Deep Sedation with Procedure: No Diagnostics - Vital Signs Vital Signs Temp Pulse Resp BP Pulse Ox 05/13/19 09:28 98.1 F 85 19 126/85 96 - Laboratory Lab Statement: Any lab studies that have been ordered have been reviewed, and results considered in the medical decision making process. - Radiology L Knee XR Radiology Interpretation Completed By: Radiologist Summary of Radiographic Findings: Impression: Soft tissue swelling with suprapatellar effusion and no definite fracture. ED physician has reviewed this report. Re-Evaluation - Re-Evaluation First Eval Re-Evaluation Time: 12:05 Comment: Attempted L knee aspiration. Patient safe for d/c at this time. All results discussed. Lower Extremity Course/Dx - Course Course Of Treatment: 29 y/o F w hx ICH, R sided weakness, p/w worsening L knee pain. - afebrile, well appearing. No fevers. ROM (w pain). Do not suspect septic joint. - likely 2/2 inflammation vs trauma/overuse. XR w suprapatellar effusion. Attempted to aspirate for comfort but unable to 2/2 patient tolerance (attempted x1). - given ino wrap for comfort. Deferred knee immobilizer as I feel this would severely limited her mobility and comfort as she is mostly wheelchair bound. - Diagnoses Provider Diagnoses: Knee pain, left, Knee effusion, left Discharge ED - Sign-Out/Discharge Documenting (check all that apply): Patient Departure - Patient will be discharged home. - Discharge Plan Condition: Stable Disposition: HOME Patient Education Materials: Swollen Knee Joint (ED) Referrals: Kurt Valentin MD [Medical Doctor] - 3 Days Diann Hughes NP [Primary Care Provider] - 3 Days Additional Instructions: You were seen in the emergency department for knee pain. Your x-ray showed an effusion above your patella. Please take Motrin for inflammation, take Percocet for pain. You can use an Ino wrap, keep the leg elevated and use ice. Please follow up with orthopedics you have persistent pain greater than 1 week. If any studies were not completed at the time of discharge you will be called with the relevant results. Please follow up with your primary care doctor in the next 2-3 days and return to the emergency department for worsening pain, fevers, inability to stand on your knee, or concerning symptoms. It was a pleasure taking care of you today. - Billing Disposition and Condition Condition: STABLE Disposition: Home - Attestation Statements Document Initiated by Lola: Yes Documenting Scribe: Eileen Peters Provider For Whom Lola is Documenting (Include Credential): Dr. Lynn Damon MD Scribe Attestation: I, Eileen Peters, scribed for Dr. Lynn Damon MD on 05/14/19 at 0330. Scribe Documentation Reviewed: Yes Provider Attestation: The documentation as recorded by the Eileen strong accurately reflects the service I personally performed and the decisions made by me, Dr. Lynn Damon MD Status of Scribe Document: Viewed
[2019-05-13] MEDS ORDERED: Lidocaine 2.5%/Prilocain 2.5%* 5 GM TUBE TOPICAL ONE (11:19)
[2019-05-13 12:30] VITALS: BP 135/79
== END 2019-05-13 12:29 | disposition home or self-care (01) ==
LOC: ED 09:21
DX: M25.562 Pain in left knee (principal); M25.462 Effusion, left knee; F41.9 Anxiety disorder, unspecified; F32.9 Major depressive disorder, single episode, unspecified; K50.90 Crohn's disease, unspecified, without complications; Z91.011 Allergy to milk products; Z88.0 Allergy status to penicillin; Z91.018 Allergy to other foods
CPT/HCPCS: 99282; A9270-GY